=== PATIENT | female | born 2000 | race Caucasian/White ===

== ENCOUNTER 2024-02-10 16:11 | Inpatient (IN) | payer SELFPAY ==
[~2024-02-10] VITALS: Ht 160 cm; Wt 111.0 kg
[~2024-02-10 16:11] MED LIST: IBU800 M1 PO
[2024-02-10] MEDS ORDERED: Morphine 4 MG/ML VIAL IV PRN (16:30)
[2024-02-10] MEDS ORDERED: Acetaminophen 325 MG TAB PO PRN (16:30)
[2024-02-10] MEDS ORDERED: Ondansetron 4 MG/2 ML VIAL IV PRN (16:30)
[2024-02-10] MEDS ORDERED: LR 1,000 ML IV SCH (17:45)
--- NOTE | 2024-02-10 19:16 | NUR ---
RECEIVED CHANGE OF SHIFT REPORT FROM DAY SHIFT NURSE. PATIENT REPORTED ABD PAIN RETURNED AFTER INTAKE OF SOME OF THE CLEAR LIQUID SUPPER. DENIES NAUSEA AT THIS TIME.
[2024-02-10 20:00] VITALS: BP 145/83; PULSE 84; TEMP 98.6
[2024-02-10 21:00] VITALS: BP_SYST 145
[2024-02-11] VITALS (17 sets, daily range): BP systolic 96–120; BP diastolic 52–70; PULSE 64–91; TEMP 97.5–98.6
[2024-02-11] MEDS ORDERED: LR 1,000 ML IV SCH (06:00)
[2024-02-11 06:12] LABS: HEMOGLOBIN 13.8 g/dl (12.5-16.0); MEAN CELL VOLUME 87 fl (80.0-100.0); MEAN CORPUSCULAR HEMOGLOBIN 29 pg (27-31); MEAN CORPUSCULAR HGB CONC 34 g/dl (33.0-37.0); MEAN PLATELET VOLUME 10.4 fl (7.4-10.4); PLATELET COUNT 257 K/mm3 (130-400); RED BLOOD COUNT 4.69 M/mm3 (4.10-5.30); REDCELL DISTRIBUTION WIDTH-CV 12.6 % (11.5-14.5)
[2024-02-11 06:34] LABS: ALBUMIN 3.4 g/dL (3.5-5.0); CALCIUM 9.1 mg/dL (8.4-10.2); CREATININE, serum 0.7 mg/dL (0.57-1.11); POTASSIUM 3.9 mEq/L (3.5-4.5); TOTAL PROTEIN 6.6 g/dl (6.2-8.1)
[2024-02-11] MEDS ORDERED: Indocyanine Green 6.25 MG in Water For Injection,Sterile 1.25 ML IV SCH (07:00)
[2024-02-11] MEDS ORDERED: Scopolamine 1 MG Delivered 3-Day PATCH TD SCH (07:00)
--- NOTE | 2024-02-11 08:26 | NUR ---
Pt resting in bed with pain 6/10 in epigastric abdomen. Pt states pain in worse with movement and deep breathing. Pt remains NPO at this time, pt slightly hypotensive SBP of 96 with no symptoms. Steady gait around room, pt reports minimal urine output. No needs at this time, call light within reach, will continue to monitor.
[2024-02-11] MEDS ORDERED: Ondansetron 4 MG/2 ML VIAL IV PRN ×2 (09:00→12:00)
[2024-02-11] MEDS ORDERED: hydrALAZINE 20 MG/ML 1 ML VIAL IV PRN (09:00)
[2024-02-11] MEDS ORDERED: Meperidine 50 MG/ML 1 ML VIAL IV PRN (09:00)
[2024-02-11] MEDS ORDERED: droPERidol 2.5 MG/ML 2 ML VIAL IV PRN (09:00)
[2024-02-11] MEDS ORDERED: HYDROmorphone 1 MG/1 ML SYRINGE [PACU/SDC ONLY] IV PRN (09:00)
[2024-02-11] MEDS ORDERED: fentaNYL 50 MCG/ML 1 ML SYRINGE/VIAL [PACU/SDC ONLY] IV PRN (09:00)
[2024-02-11] MEDS ORDERED: Ondansetron 4 MG/2 ML VIAL ONE (10:35)
[2024-02-11] MEDS ORDERED: fentaNYL 50 MCG/ML 2 ML VIAL ONE ×3 (10:35→11:52)
[2024-02-11] MEDS ORDERED: dexAMETHasone 10 MG/ML VIAL ONE (10:35)
[2024-02-11] MEDS ORDERED: Ketorolac 30 MG/ML VIAL ONE (10:35)
[2024-02-11] MEDS ORDERED: Lidocaine PF 2% (20 MG/ML) 5 ML VIAL ONE (10:35)
[2024-02-11] MEDS ORDERED: Succinylcholine PF 200 MG/10 ML SYRINGE IV ONE (10:36)
[2024-02-11] MEDS ORDERED: Midazolam 2 MG/2 ML VIAL ONE (10:36)
[2024-02-11] MEDS ORDERED: Rocuronium 50 MG/5 ML Multi-Dose VIAL ONE (10:39)
[2024-02-11] MEDS ORDERED: Iohexol 350 - 100 ML VIAL BILE DUCT ONE (11:30)
[2024-02-11] MEDS ORDERED: NS 10 ML VIAL IT ONE (11:30)
--- NOTE | 2024-02-11 11:38 | NUR ---
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 Room was dark; Patient was sleeping. Assessment: None. Patient was sleeping. Plan of Care: Chaplains will remain available as needed/requested while Patient is admitted to this hospital.
[2024-02-11] MEDS ORDERED: Topical Skin Adhesive 1 EACH (1 ML) TOP ONE (11:50)
[2024-02-11] MEDS ORDERED: Ibuprofen 600 MG TAB PO PRN (12:00)
[2024-02-11] MEDS ORDERED: Acetaminophen 325 MG TAB PO PRN (12:00)
--- NOTE | 2024-02-11 12:59 | NUR ---
Pt up to the floor at this time, A/O x4, pain 7/10 in abdomen. PACU nurse provided pain medication. Pt complaining of nausea at this time, emesis basket within reach. Room darkened, ice or heating pad offered and declined at this time, vitals stable on RA. No needs at this time, will continue to monitor.
--- NOTE | 2024-02-11 14:07 | NUR ---
SW attempted to meet with patient to complete initial assessment for discharge planning. Patient still very groggy from surgery, no family present. Patient unable to participate in assessment. SW will follow up at a later time.
--- NOTE | 2024-02-11 14:56 | NUR ---
MYRANDA met with Pt bedside to complete initial assessment and discuss discharge planning. Pt was still drowsy coming from surgery. MYRANDA called [facility] Read [phone] to complete assessment. Confirmed Pt has no insurace and no PCP. Pt uses [facility] pharmacy. Pt has no DME. Pt lives alone but will live with family while recovering. Wolf inquired about the healing process after sx. MYRANDA directed family to discuss Pt specific recovery process with medical team. Wolf had no further questions. MYRANDA will continue to follow for any discharge needs. D/C plan: home with family
[2024-02-11] MEDS ORDERED: Carboxymethylcellulose PF Ophth 0.4 ML DROPPERETTE OP PRN (16:45)
--- NOTE | 2024-02-11 19:00 | NUR ---
RECEIVED CHANGE OF SHIFT REPORT FROM DAY SHIFT NURSE. PATIENT RESTING IN BED, EYES CLOSED, BREATHING EVEN/NONLABORED. CALL LIGHT WITHIN PATIENT'S REACH.
[2024-02-12] VITALS (12 sets, daily range): BP systolic 102–121; BP diastolic 56–76; PULSE 68–88; TEMP 98.3–98.9
--- NOTE | 2024-02-12 02:30 | NUR ---
PATIENT RESTING WITH EYES CLOSED, BREATHING NONLABORED AND EVEN. PATIENT HAD REQUESTED MORPHINE X2 PRIOR TO MIDNIGHT THEN TOOK ORAL PAIN MEDICATION FOR THE FIRST TIME SINCE SURGERY. SEE [facility] FOR MEDS GIVEN
--- NOTE | 2024-02-12 04:18 | NUR ---
REQUESTED AND GIVEN PAIN PILL, SEE [facility] FOR MED GIVEN. REPORTED HAD PASSED SOME FLATUS AND WAS ABLE TO VOID, DENIES ANY PROBLEMS WITH VOIDING. IV FLUIDS INFUSING WITH NO PROBLEMS.
--- NOTE | 2024-02-12 07:24 | NUR ---
CHANGE OF SHIFT REPORT GIVEN TO DAY SHIFT NURSECLAUDIA. PATIENT UP INDEPENDENTLY IN ROOM, TOLERATED GENERAL DIET EARLIER THIS MORNING BEFORE LEFT AC IV SITE REMOVED PER PATIENT REQUEST AND RESTARTED BY NETWORK DIRECTOR TO RIGHT HAND. PATIENT REPORTED DISCOMFORT WITH LAC IV SITE. PATIENT UP INDEPENDENTLY IN ROOM, PATIENT DID NOT WEAR SCDS WHEN IN BED.
--- NOTE | 2024-02-12 08:00 | NUR ---
Pt. sitting up in bed. Pt. is A&OX3, assessment complete. INT to rt. hand patent. Abd. incisions well approximated. Pt. denies pain or other needs, call light within reach.
--- NOTE | 2024-02-12 19:00 | NUR ---
RECEIVED CHANGE OF SHIFT REPORT FROM DAY SHIFT NURSE. PATIENT UP INDEPENDENTLY IN ROOM, INT IN PLACE TO RIGHT HAND. PATIENT DENIES NAUSEA AT THIS TIME.
--- NOTE | 2024-02-12 19:16 | NUR ---
RECEIVED CHANGE OF SHIFT REPORT FROM DAY SHIFT NURSE.
--- NOTE | 2024-02-12 23:19 | NUR ---
PATIENT REQUESTED AND GIVEN MORPHINE FOR A PAIN LEVEL OF 7-8. SEE [facility] FOR MEDICATIONS GIVEN. IV FLUIDS HUNG WITH SCHEDULED LEVAQUIN. PATIENT INFORMED OF NPO STATUS AT MIDNIGHT AND INFORMED OF SCHEDULED ERCP TIME OF 1300 PER D.O. PER [employer]. PATIENT DENIED ANY OTHER CONCERNS OR QUESTIONS AT THIS TIME.
[2024-02-13] VITALS (13 sets, daily range): BP systolic 93–120; BP diastolic 53–82; PULSE 62–82; TEMP 98–98.6
--- NOTE | 2024-02-13 03:28 | NUR ---
COMPLAINING OF ABD PAIN/RIGHT SHOULDER PAIN, SEE [facility] FOR PAIN MED GIVEN. DENIES SHORTNESS OF BREATH/NAUSEA/CHEST PAIN AT THIS ITME. IV FLUIDS INFUSING WITH NO PROBLEMS. DOES REPORT UNABLE TO TAKE A DEEP BREATH DUE TO ABD/RIGHT SHOULDER PAIN.
--- NOTE | 2024-02-13 07:12 | NUR ---
Change of shift report given to day shift nurseKatherine.
--- NOTE | 2024-02-13 08:05 | NUR ---
Pt resting in bed with nausea and pain 8/10 in right shoulder, ribs, and lower back. Pain medication and zofran provided per emar. Abdomen lap sites x5 DANNY with skin glue, SCDs in place, pt remains NPO, steady gait around room. No other needs at this time. Surgical consents signed, will continue to monitor.
[2024-02-13] MEDS ORDERED: LR 1,000 ML IV SCH (09:00)
--- NOTE | 2024-02-13 09:15 | NUR ---
MYRANDA notified by RN that patient is requesting assistance to complete financial forms. MYRANDA called August with [facility] to request she meet with patient to complete FAA and assist with forms patient is completeing due to patient being self pay. Discharge plan: Home
[2024-02-13] MEDS ORDERED: Lidocaine PF 2% (20 MG/ML) 5 ML VIAL ONE (13:11)
[2024-02-13] MEDS ORDERED: Iohexol 350 - 100 ML VIAL BILE DUCT ONE (13:29)
--- NOTE | 2024-02-13 13:50 | NUR ---
Pt up to the floor at this time, A/O x4, pain 9/10, PRN pain medication provided, pt remains NPO until 1430. Will continue to monitor.
[2024-02-13] MEDS ORDERED: NORCO 325 MG-51 TAB PO (14:04)
--- NOTE | 2024-02-13 17:14 | NUR ---
Dischrage instructions provided to pt. Discussed follow up appointment, new medications, and signs of infection. No questions at this time, IV removed.
== END 2024-02-13 17:24 | disposition home or self-care (01) | DRG 419 ==
LOC: SURG 16:11
PROVIDERS: ADMIT Surgery
PROC: 0FT44ZZ Resection of Gallbladder, Percutaneous Endoscopic Approach (ICD-10-PCS; principal; 2024-02-10)
PROC: BF131ZZ Fluoroscopy of Gallbladder and Bile Ducts using Low Osmolar Contrast (ICD-10-PCS; 2024-02-10)
PROC: 8E0W4CZ Robotic Assisted Procedure of Trunk Region, Percutaneous Endoscopic Approach (ICD-10-PCS; 2024-02-10)
DX: K80.45 Calculus of bile duct with chronic cholecystitis with obstruction (principal)
CPT/HCPCS: J0690; J1100; J1170; J1790; J1885; J1956; J2250; J2270; J2405; J2704; J3010; J7120; Q9967